=== PATIENT | female | born 1975 | race Caucasian/White ===

== ENCOUNTER 2018-03-13 14:35 | Inpatient (IN) ==
[2018-03-13] MEDS ORDERED: Acetaminophen 325 MG Tablet PO PRN (17:21)
[2018-03-13] MEDS ORDERED: Aluminum/Magnesium/Simethacone Susp 30 ML UDC PO PRN (17:21)
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
--- NOTE | 2018-03-13 18:26 | ED ---
HPI General Chief Complaint: Psychiatric Symptoms Stated Complaint: Pysch Eval/VCSO Source: patient Mode of arrival: ambulatory Limitations: no limitations History of Present Illness HPI Narrative: 42-year-old female presents to the emergency department under Mccray act. According to the Mccray act report she has had manic episodes responding to internal stimuli, remarked about a chain in the garage that can be used to hurt herself, insomnia, depressed mood. On my examination the patient denies suicidal or homicidal ideations. Denies history of suicidal attempts. Denies any toxic ingestions. Denies hallucinations. Reports alcohol use sometimes. Denies illicit drug use or tobacco use. Symptoms are moderate to severe in severity. Says her symptoms have been aggravated by recent separation and breakup with her boyfriend. No known relieving factors. Onset unknown. Duration unknown. No known allergies. Denies significant past medical history. No primary care provider. No psychiatric history. Denies chest pain, shortness breath, abdominal pain, nausea, vomiting, change in urine or stool. Has no other medical complaints. No other modifying factors or associated signs and symptoms. Related Data Allergies Allergy/AdvReac Type Severity Reaction Status Date / Time ANTIHISTAMINES Allergy Unknown UNKNOWN Uncoded 03/13/18 16:04 Review of Systems ROS: all other systems reviewed are negative PMFSH Immunization History Tetanus Immunization: Unsure Exam Narrative Exam Narrative: GENERAL: Well-nourished, well-developed femur patient , in no acute distress SKIN: Warm and dry. HEAD: Atraumatic. Normocephalic. EYES: Pupils equal and round. ENT: Mucosa pink and moist. NECK: Supple. Trachea midline. CARDIOVASCULAR: Regular rate and rhythm. No murmur appreciated. RESPIRATORY: No accessory muscle use. Clear to auscultation. Breath sounds equal bilaterally. GASTROINTESTINAL: Abdomen soft, non-tender, nondistended. Hepatic and splenic margins not palpable. Bowel sounds are active 4 quadrants. MUSCULOSKELETAL: No obvious deformities. No clubbing. No cyanosis. No edema. BACK: No CVA tenderness. NEUROLOGICAL: Awake and alert. Oriented 3. No obvious cranial nerve deficits. Motor grossly within normal limits. Normal speech. Moves all extremities. 5/5 strength to all extremities. PSYCHIATRIC: Flat affect. No delusional thought processes. No hallucinations. Course Initial Documented Vital Signs Temperature 98.6 F 08/20/18 15:11 Pulse Rate 107 H 03/13/18 15:11 Respiratory Rate 18 03/13/18 15:11 Blood Pressure 107/61 03/13/18 15:11 Pulse Oximetry 98 03/13/18 15:11 Last Documented Vital Signs Temperature 98.6 F 03/13/18 15:11 Pulse Rate 107 H 03/13/18 15:11 Respiratory Rate 18 03/13/18 15:11 Blood Pressure 107/61 03/13/18 15:11 Pulse Oximetry 98 03/13/18 15:11 Medical Decision Making MDM Narrative Medical decision making narrative: Patient presents under a Mccray act. Patient was transferred from [facility]. I reviewed her medical records and labs were unremarkable. Urinalysis showed signs of infection and Dr. Byrd has ordered Macrobid. Patient has already been evaluated by psych and will be admitted into the psychiatric unit. Physical examination and vital signs are essentially unremarkable. Patient has no medical complaints to report. Psych screen has been ordered. If the laboratory results are unremarkable, the patient will be medically cleared for psychiatric evaluation and disposition. Medical Screen Exam Complete: Yes Emergency Medical Condition: Yes Differential Diagnosis Differential Diagnosis: Depression, anxiety, adjustment disorder, medical clearance for psychiatric admission Discharge Plan Discharge Disposition Patient Disposition: 30 Still Patient Discharge Condition Condition: Stable Discharge Details Diagnosis: UTI (urinary tract infection) Physicians Team ED Provider: [facility] Ed,[facility] Primary Care Provider: UNKNOWN, Attending Provider: Juan Card Other Providers: Tony Carmona Status ED Status: Admitted Patient
[2018-03-13] MEDS: Nitrofurantoin Monohydrate-Macrocrystal 100 MG Capsule PO SCH (21:16)
[2018-03-13] MEDS: Melatonin 5 MG Tablet PO PRN (23:26)
[2018-03-14] MEDS: Nitrofurantoin Monohydrate-Macrocrystal 100 MG Capsule PO SCH ×2 (09:52→17:38)
--- NOTE | 2018-03-14 09:53 | P.PNPSY ---
Subjective Chief Complaint: Mccray act Remarks: Patient seen and examined with nurse. Chart reviewed. Collateral obtained by RN in ED from father noted. Case discussed with nursing staff. On my examination today, the patient remains irritable and dysphoric. She is secluding in her room. She continues to complain of poor sleep. She denies suicidal ideation at present. Given collateral from father, I again question patient about possibility of history of mood instability suggestive of possible bipolar diagnosis, but there is no evidence of bipolarity that I can discern. No side effects from medications. No physical complaints. Vital Signs Temp Pulse Resp BP Pulse Ox 03/14/18 05:45 98.5 F 83 18 100/58 L 96 03/13/18 21:15 98.2 F 93 H 17 118/77 03/13/18 15:11 98.6 F 107 H 18 107/61 98 Intake and Output 03/13/18 03/14/18 03/14/18 22:59 06:59 14:59 Other: Weight 64.6 kg Weight On Admission 64.6 kg Labs reviewed. Laboratories ordered for this morning are presently pending. Review of Systems All other systems reviewed negative except as stated in HPI Mental Status Examination Appearance: Disheveled Consciousness: Alert Orientation: x4 Motor Activity: Other (Psychomotor slowed.) Speech: Hesitant, Slow, Other (monotone) Language: Adequate Fund of Knowledge: Adequate Attention and Concentration: Easily distracted Memory: Unremarkable Mood: Other (Dysphoric) Affect: Other (Restricted) Thought Process & Associations: Other (Slowed) Thought Content: Preoccupations Hallucination Type: None Delusion Type: None Suicidal Ideation: No (Denies active suicidal ideation but admits to passive thoughts of at this point. Unclear whether patient is reliable to contract for safety.) Suicidal Plan: No Suicidal Intention: No Homicidal Ideation: No Homicidal Plan: No Homicidal Intention: No Insight: Poor Judgment: Impulsive Assessment and Plan - Assessment (1) Major depressive disorder, recurrent severe without psychotic features Code(s): F33.2 - Major depressive disorder, recurrent severe without psychotic features Status: Acute - Plan Plan: Patient with ongoing low mood, concern for risk for self-harm. Extensive discussion with patient again today regarding psychopharmacologic medications that might be of help and present condition. Patient remains fixated on her sleep and asks only for a hypnotic. I explained that hypnotic will not help with mood issues more than likely and recommend trial of sedating antidepressant. After lengthy discussion of her options, we settle on a trial of trazodone. Start trazodone 100 mg at bedtime with additional 50 mg at bedtime as needed should the 100 mg dose be insufficient to promote sleep. R/B/ A for medications discussed with patient. Follow-up laboratories. I have encouraged participation in groups and unit activities. I have additionally counseled the patient regarding aspects of sleep hygiene. Continue to monitor on the inpatient unit. Continue other medications and care as ordered. Justification for Continued Inpatient Stay: Medication changes. Monitoring for impairment in safety. Risk for decompensation in less restrictive environment. Discharge Planning: Pending psychiatric stabilization Request Healthcare Surrogate/Guardian Advocate?: No
[2018-03-14 10:49] LABS: Albumin 3.4 g/dL (3.4-5.0); Anion Gap 8 meq/L (5-15); Aspartate Aminotransferase 9 U/L (15-37); Blood Urea Nitrogen 12 mg/dL (7-18); Calcium 8.5 mg/dL (8.5-10.1); Carbon Dioxide 25.9 meq/L (21.0-32.0); Chloride 108 meq/L (98-107); Glomerular Filtration Rate Greater Than 89 mL/min (>89); Glucose,Random 89 mg/dL (74-106); Potassium 3.7 meq/L (3.5-5.1); Sodium 142 meq/L (136-145)
[2018-03-14 10:50] LABS: Cholesterol 121 mg/dL (120-200)
[2018-03-14 11:01] LABS: Alanine Aminotransferase 10 U/L (10-53); Alkaline Phosphatase 45 U/L (45-117); Chol/HDL Ratio 3.68 Ratio; HDL Cholesterol 32.8 mg/dL (40.0-60.0); LDL Cholesterol,Calculated 69 mg/dL (0-99); Total Protein 6.2 g/dL (6.4-8.2); Triglycerides 98 mg/dL (42-150)
[2018-03-14 15:54] LABS: Hemoglobin A1c 4.7 % (4.3-6.0)
--- NOTE | 2018-03-14 15:59 | P.CONPSY ---
Provisional Diagnosis Admission Date: March 13, 2018 17:21 Dickinson I.: 1. Major depressive disorder, recurrent, severe without psychotic features Dickinson II.: Deferred History of Present Illness Service: Psychiatry Consult date: 03/14/18 Requesting Physician: Juan Card Reason for Consult: Second opinion Primary Care Provider: UNKNOWN History of Present Illness: Patient is a 42-year-old woman, who was admitted recently due to depressive symptoms along with suicide ideations with plan to hang herself which patient is seen today for second opinion. Patient was found sitting in hospital bed combing her hair after shower earlier this morning. Patient states that she had not slept for about a week and a too many days have gone by. Patient states that she has began to sleep too much initially but then having had difficulty having any sleep in the context of feeling depressed since December after her left her when she is now from him. Patient also mentioned that her close friend of hers had moved as well and now has no other support. Patient states her current stressors include feeling lonely, caring for her kids alone, having decreased appetite, energy concentration, poor motivation, suicide ideation for the past week with no specific plan although mentioned any thoughts of hanging herself as per chart. Patient this time continues report feeling depressed, and has agreed to a medication trial trazodone which she will begin tonight. Patient noted to be tearful during interview at times. Patient denies any SI or HI, AVH or delusions at this time. Review of Systems All other systems reviewed negative except as stated in HPI PMFSH - History History Provided By: Patient, Medical Record - Tobacco History Second Hand Smoke Exposure: No Tobacco Use In Past 30 Days: No Smoking Status: Former smoker - Alcohol History How Often Do You Have a Drink Containing Alcohol: 2 to 3 times a week - Substance Use History Substance History: No History of Abuse - Immunization History Tetanus Immunization: Unsure Medications and Allergies Active Medications: Active Medications Acetaminophen (Tylenol) 650 mg PO Q4H PRN PRN Reason: Pain 1-5 or Temp >101F Al Hydrox/Mg Hydrox/Simethicone (Mag-Al Plus Susp Liq) 30 ml PO Q6H PRN PRN Reason: DYSPEPSIA Al Hydroxide/Mg Hydroxide (Milk Of Magnesia Liq) 30 ml PO Q12H PRN PRN Reason: Mild Constipation Melatonin (Melatonin) 5 mg PO HS PRN PRN Reason: INSOMNIA Last Admin: 03/13/18 23:26 Dose: 5 mg Nicotine (Habitrol 21 Mg Patch.24 Hr) 1 patch T-DERMAL DAILY PRN PRN Reason: Nicotine craving Nitrofurantoin Macrocrystals (Macrobid) 100 mg PO BIDPC MANJULA Last Admin: 03/14/18 09:52 Dose: 100 mg Trazodone HCl (Desyrel) 100 mg PO HS MANJULA Trazodone HCl (Desyrel) 50 mg PO HS PRN PRN Reason: Insomnia Allergies Allergy/AdvReac Type Severity Reaction Status Date / Time ANTIHISTAMINES Allergy Unknown UNKNOWN Uncoded 03/13/18 16:04 Exam Vital signs: Vital Signs 03/13/18 21:15 03/14/18 05:45 Temperature 98.2 F 98.5 F Pulse Rate 93 H 83 Respiratory Rate 17 18 Blood Pressure 118/77 100/58 L Pulse Oximetry 96 Intake & Output 03/13/18 03/14/18 03/14/18 18:59 06:59 18:59 Weight 64.6 kg Other: Weight On Admission 64.6 kg Narrative: Patient not noted to be acute distress, no gross motor abnormalities, no signs of tremor or EPS, no psychomotor agitation but noted to have some psychomotor retardation. - Constitutional no acute distress, cooperative Mental Status Examination Appearance: Appropriate Consciousness: Alert Orientation: x4 Motor Activity: Other (Psychomotor slowed.) Speech: Hesitant, Slow, Other (monotone) Language: Adequate Fund of Knowledge: Adequate Attention and Concentration: Easily distracted Memory: Unremarkable Mood: Other (Dysphoric) Affect: Other (Tearful at times) Thought Process & Associations: Other (Slowed) Thought Content: Preoccupations Hallucination Type: None Delusion Type: None Suicidal Ideation: Yes (Denies at this time but had previous suicide ideations recently prior to admission, unreliable if patient is able to contract for safety at this time.) Suicidal Plan: No Suicidal Intention: No Homicidal Ideation: No Homicidal Plan: No Homicidal Intention: No Insight: Poor Judgment: Impulsive Assessment and Plan - Assessment (1) Major depressive disorder, recurrent severe without psychotic features Code(s): F33.2 - Major depressive disorder, recurrent severe without psychotic features Status: Acute - Plan Plan: I have seen and examined this patient, reviewed the documentation, and I agree and concur with Dr. Card assessment and plan. Consult appreciated. Justification for Continued Inpatient Stay: At risk of further decompensation a lower level of care. Request Healthcare Surrogate/Guardian Advocate?: No
[2018-03-14] MEDS: traZODone 100 MG Tablet PO SCH (20:13)
[2018-03-14] MEDS: traZODone 50 MG Tablet PO PRN (21:44)
[2018-03-15] MEDS: Nitrofurantoin Monohydrate-Macrocrystal 100 MG Capsule PO SCH ×2 (08:41→17:13)
--- NOTE | 2018-03-15 11:59 | P.PNPSY ---
Subjective Chief Complaint: [facility] Remarks: Patient seen and examined with nurse. Chart reviewed. I note that the patient received both the scheduled and p.r.n. dose of trazodone last night. Case discussed with nursing staff. Patient noted by nursing to appear dysphoric. On my exam, patient reports that she slept better with addition of trazodone. She remains fairly downcast and withdrawn, although her grooming is in retrospect better today versus yesterday. She remains anhedonic. She denies SI , but it remains unclear if she is reliable to maintain safety in less restrictive setting. She is somewhat faultfinding but says of her inpatient experience that it has taught her "that I was making my life really complicated. " She says that she feels more hopeful now. She continues to attribute the totality of her presentation to her poor sleep and seems resistant to allowing for the possibility that she has a mood disorder, even though she admits that she was feeling depressed prior to admission. Denies side effects from medications. No physical complaints. Vital Signs Temp Pulse Resp BP Pulse Ox 03/15/18 06:05 98.2 F 83 16 98/55 L 97 03/14/18 17:00 99.0 F 77 16 119/73 94 L Intake and Output 03/14/18 03/15/18 03/15/18 22:59 06:59 14:59 Other: Date of Last Bowel Movement 03/14/18 Laboratory Results - last 24 hr 03/14/18 09:09 Hemoglobin A1c 4.7 Labs reviewed. Review of Systems All other systems reviewed negative except as stated in HPI Mental Status Examination Appearance: Appropriate (Grooming is improved today) Consciousness: Alert Orientation: x4 Motor Activity: Other (Remains a little psychomotor slowed) Speech: Hesitant, Slow, Other (monotone) Language: Adequate Fund of Knowledge: Adequate Attention and Concentration: Adequate Memory: Unremarkable Mood: Other (Remains dysphoric) Affect: Other (Restricted) Thought Process & Associations: Other (Slowed) Thought Content: Appropriate Hallucination Type: None Delusion Type: None Suicidal Ideation: No Suicidal Plan: No Suicidal Intention: No Homicidal Ideation: No (No HI voiced) Insight: Poor Judgment: Impulsive Assessment and Plan - Assessment (1) Major depressive disorder, recurrent severe without psychotic features Code(s): F33.2 - Major depressive disorder, recurrent severe without psychotic features Status: Acute - Plan Plan: I have suggested to patient that we titrate scheduled trazodone to 150mg qHS since she required the p.r.n. dose last night and tolerated this dose well, but patient prefers to keep psychotropics as presently ordered. She continues to appear quite depressed, and I have concerns for elevated risk for self-harm in less restrictive setting at this time. She is hopeful that the [facility] will discharge her tomorrow, but I feel this would be premature. Continue to monitor on inpatient unit. Continue other medications and care as ordered. Justification for Continued Inpatient Stay: Monitoring for impairment in safety. Risk for decompensation in less restrictive environment. Discharge Planning: Pending psychiatric stabilization. Request Healthcare Surrogate/Guardian Advocate?: No
[2018-03-15] MEDS: traZODone 100 MG Tablet PO SCH (20:24)
[2018-03-15] MEDS: Melatonin 5 MG Tablet PO PRN (21:57)
[2018-03-15] MEDS: traZODone 50 MG Tablet PO PRN (21:57)
[2018-03-16] MEDS: Nitrofurantoin Monohydrate-Macrocrystal 100 MG Capsule PO SCH (08:37)
--- NOTE | 2018-03-16 10:35 | P.DSPSY ---
Psychiatry Discharge Summary Inpatient Psychiatric care?: Yes Advance Directives: No Mental Health Advance Directive: No Health Care Proxy: No - Admission Admission Date: March 13, 2018 17:21 - Admission Diagnosis (1) Major depressive disorder, recurrent severe without psychotic features Code(s): F33.2 - Major depressive disorder, recurrent severe without psychotic features Brief History: Ms. Yo is a 42-year-old female with no reported previous psychiatric diagnoses who presents in transfer from [facility] under a [facility] act. Documentation from outside hospital reviewed. Patient presented there initially complaining of anxiety and insomnia. However, it appears she disclosed to the psychiatric screener at the outside hospital that she was entertaining suicidal thoughts to hang herself with a chain in her garage. Reviewing our electronic medical record, I see no previous psychiatric contact within our system. Patient seen and examined in the J pod. Chart reviewed. Case discussed with nursing staff. On my examination today, the patient presents as intensely anhedonic, withdrawn and tearful. Affect is restricted and dysphoric. The patient tells me that she has been going through "a bad crisis" since she from her . It is difficult in the patient's acute distress to obtain a clear time course of when this occurred. She says that she has been feeling overwhelmed taking care of her 3 children by herself. She does endorse poor sleep as well as lack of energy. She tells me that she spends a lot of time simply staring at the wall. Concentration seems poor. Speech is monotone and droning. She does admit that prior to presenting to outside hospital she was entertaining thoughts of suicide including by hanging. She says that she was having some ambivalence regarding and acting a suicide plan, and this in part is why she presented to outside hospital. She denies suicidal ideation at this time, although I question whether the patient is reliable to contract for safety as her denial of suicidal ideation is couched in a desire to be discharged from the emergency room this afternoon. She does not describe any urge to hurt herself in the ED or on the inpatient unit. No homicidal ideation. Denies audiovisual hallucinations. No delusional material. No hypomanic or manic symptoms presently, nor can I elicit any history of same. Remainder of the psychiatric ROS is negative. No acute physical complaints. Patient is insistent on leaving the emergency room this afternoon. Tobacco Use In Past 30 Days: No How Often Do You Have a Drink Containing Alcohol: 2 to 3 times a week Hospital Course: Patient was admitted to a locked, inpatient psychiatric unit. Appropriate precautions were in place throughout patient's hospital stay. Patient was seen and examined on the unit by psychiatry and also visited by counselor. Psychotropic medications were adjusted. Patient tolerated medications well without side effects. Patient remained quite depressed throughout her stay, although there was no evidence of any suicidality on the inpatient unit. Her insight into mental illness is poor, and the patient continues to attribute all of her presenting symptoms to poor sleep alone. The patient's case was presented to the [facility], and the behavioral therapist has ordered the patient's release from the inpatient unit today as per patient's request. Patient remains quite dysphoric, irritable and tearful at time of discharge. Although the patient does not verbalize any ongoing suicidal ideation, I have grave concerns that she remains at elevated risk for self-harm in a less restrictive setting. I therefore discharge her AGAINST MEDICAL ADVICE. Psychiatric follow- up as arranged by counselor. Patient is also to follow up with primary care. Given concern for ongoing suicide risk, I have prescribed patient's medication on discharge in the smallest quantity consistent with good care to reduce the risk of overdose. Patient to return to psychiatric emergency room for any concerning symptoms as part of a general safety plan. - Discharge Discharge Date: 03/16/18 - Discharge Diagnosis (1) Major depressive disorder, recurrent severe without psychotic features Diagnosis: Principal Code(s): F33.2 - Major depressive disorder, recurrent severe without psychotic features Status: Acute Discharge Disposition: AMA - Discharge Instructions Discharge Diet: Regular Diet Activities You Can Perform: Weight Bearing As Tolerat - Discharge Time <= 30 minutes Mental Status Examination Appearance: Appropriate (Fair grooming) Consciousness: Alert Orientation: Person, Place (at least) Motor Activity: Other (Somewhat psychomotor slowed still) Speech: Hesitant, Slow, Other (Remains monotone) Language: Adequate Fund of Knowledge: Adequate Attention and Concentration: Adequate Memory: Unremarkable Mood: Other (Remains dysphoric) Affect: Irritable, Other (Restricted) Thought Process & Associations: Intact Thought Content: Appropriate Hallucination Type: None Delusion Type: None Suicidal Ideation: No Suicidal Plan: No Suicidal Intention: No Homicidal Ideation: No Homicidal Plan: No Homicidal Intention: No Insight: Poor Judgment: Impulsive Discharge/Advance Care Plan - Results Vital Signs: Last Vital Signs Temp 98.3 F 03/16/18 05:28 Pulse 83 03/15/18 06:05 Resp 16 03/16/18 05:28 BP 110/60 03/16/18 05:28 Pulse Ox 96 03/16/18 05:28 Lab Results: Laboratory Results Hemoglobin A1c 4.7 % (4.3-6.0) 03/14/18 09:09 Triglycerides 98 mg/dL (42-150) 03/14/18 09:09 Cholesterol 121 mg/dL (120-200) 03/14/18 09:09 LDL Cholesterol, Calc 69 mg/dL (0-99) 03/14/18 09:09 HDL Cholesterol 32.8 mg/dL (40.0-60.0) L 03/14/18 09:09 TSH 1.480 uIU/mL (0.358-3.740) 03/14/18 09:09 Summary of Procedures: None done Pending Results: None - Medications Number of antipsychotic medications at discharge: 0 - Discharge Care Plan Goals to Promote Your Health: * To prevent worsening of your condition and complications * To maintain your health at the optimal level Directions to Meet Your Goals: Take your medications as prescribed Follow your dietary instruction Follow activity as directed Keep your appointments as scheduled Take your immunizations and boosters as scheduled If your symptoms worsen call your PCP, if no PCP go to Urgent Care Center or Emergency Room For 14/02 questions related to your inpatient stay or results of tests pending at discharge, please contact Dr. Juan Card MD at [phone] Smoking is Dangerous to Your Health. Avoid second hand smoking
== END 2018-03-16 17:00 | disposition left against medical advice (07) ==
LOC: NEPJ 14:35 → NEDA 17:21 → H260 21:36
PROVIDERS: ADMIT Psychiatry & Neurology Psychiatry; ATTEND Psychiatry & Neurology Psychiatry